=== PATIENT | male | born 1980 | race Caucasian/White ===

== ENCOUNTER 2018-03-19 15:25 | Emergency (ER) | payer MEDICAID, OTHER ==
[~2018-03-19] VITALS: Ht 167.6 cm; Wt 59.1 kg
[2018-03-19 15:27] VITALS: BP 128/90
== END 2018-03-19 17:45 | disposition home or self-care (01) ==
LOC: EMS 15:27
DX: S99.921A Unspecified injury of right foot, initial encounter (principal); M79.674 Pain in right toe(s); F17.210 Nicotine dependence, cigarettes, uncomplicated; W22.8XXA Striking against or struck by other objects, initial encounter; Y93.39 Activity, other involving climbing, rappelling and jumping off; Y92.89 Other specified places as the place of occurrence of the external cause; Y99.8 Other external cause status
CPT/HCPCS: 99284

== ENCOUNTER 2018-06-20 15:44 | Emergency (ER) | payer MEDICAID, OTHER ==
[~2018-06-20] VITALS: Ht 167.6 cm; Wt 59.1 kg
[2018-06-20] MEDS ORDERED: POVIDONE-IODINE 10% 15 ML SOLUTION UD TP ONE (18:00)
[2018-06-20] MEDS ORDERED: KETOROLAC TROMETHAMINE 10 MG TABLET PO ONE (18:00)
[2018-06-20] MEDS ORDERED: LIDOCAINE 1% 10 ML VIAL INJ ONE (18:00)
[2018-06-20] MEDS ORDERED: PERTUSS(ACELL),DIPH,TET VAC/PF 0.5 ML VIAL IM ONE (18:15)
[2018-06-20 18:30] VITALS: BP 116/77
== END 2018-06-20 19:46 | disposition home or self-care (01) ==
LOC: EMS 15:45
DX: S51.812A Laceration without foreign body of left forearm, initial encounter (principal); S93.402A Sprain of unspecified ligament of left ankle, initial encounter; F17.210 Nicotine dependence, cigarettes, uncomplicated; W45.8XXA Other foreign body or object entering through skin, initial encounter; Y93.89 Activity, other specified; Y92.89 Other specified places as the place of occurrence of the external cause; Y99.8 Other external cause status
CPT/HCPCS: 12002; 29515; 73610; 90471; 90715; 99283; J3490

== ENCOUNTER 2024-12-29 20:07 | Emergency (ER) | payer OTHER ==
[~2024-12-29] VITALS: Ht 165.1 cm; Wt 68.2 kg
[~2024-12-29 20:07] MED LIST: LEVE500T8 PO
[2024-12-29 22:43] VITALS: BP 162/90; PULSE 108; RESP 18; TEMP 98.2; O2SAT 99
== END 2024-12-29 23:08 | disposition home or self-care (01) ==
LOC: EMS 20:07
DX: F10.129 Alcohol abuse with intoxication, unspecified (principal); F17.210 Nicotine dependence, cigarettes, uncomplicated; Z72.89 Other problems related to lifestyle; Z79.899 Other long term (current) drug therapy; Z59.00 Homelessness unspecified; Y90.9 Presence of alcohol in blood, level not specified
CPT/HCPCS: 99282; 99283